=== PATIENT | male | born 1940 | race Asian ===

== ENCOUNTER 2018-03-13 20:14 | Emergency (ER) | payer MEDICARE, OTHER ==
[~2018-03-13] VITALS: Ht 172.7 cm; Wt 74.0 kg
[~2018-03-13 20:14] MED LIST: ALLO100T PO; AMLO-512 PO; CLON0.1T PO; COLC0.6T67 PO; DOCU-119 PO; FOLI1TAB15 PO; FURO-151 PO; INSU100V12 SQ; LOSA25TA21 PO; SIMV40TA5 PO; [UNRECOGNIZED DRUG - CODE] SQ
[2018-03-13] MEDS ORDERED: SEVEC800 PO (20:29)
[2018-03-13] MEDS ORDERED: MORPHINE SULFATE 4 MG/ML SYRINGE IVP ONE (21:30)
[2018-03-13] MEDS ORDERED: ONDANSETRON HCL 4 MG/2 ML VIAL IVP ONE (21:30)
[2018-03-13 21:45] LABS: BASOPHILS % (AUTO) 0.4 % (0.0-2.0); EOSINOPHILS % (AUTO) 2.2 % (1.0-6.0); HEMATOCRIT 31.7 % (41-53); HEMOGLOBIN 10.3 g/dL (13.5-17.5); LYMPHOCYTES # (AUTO) 0.6 K/uL (1.0-4.8); LYMPHOCYTES % (AUTO) 8.8 % (22.0-44.0); MEAN CORPUSCULAR HEMOGLOBIN 31.6 pg (26.0-34.0); MEAN CORPUSCULAR HGB CONC 32.4 G/dL (31.0-37.0); MEAN CORPUSCULAR VOLUME 98 fL (80-100); MONOCYTES # (AUTO) 0.5 K/uL (0.1-1.0); MONOCYTES % (AUTO) 8.1 % (2.0-9.0); NEUTROPHILS # (AUTO) 5.4 K/uL (1.8-7.7); NEUTROPHILS % (AUTO) 80.5 % (40.0-70.0); PLATELET COUNT (AUTO) 105 K/uL (150-450); RED BLOOD CELL COUNT(AUTO) 3.25 MIL/uL (4.50-5.90); RED CELL DISTRIBUTION WIDTH 17.8 % (11.5-14.5)
[2018-03-13 21:54] LABS: ANION GAP 9 mmol/L (8-16); CALCIUM, TOTAL 8.4 mg/dL (8.8-10.5); CARBON DIOXIDE 34 mmol/L (22-29); CHLORIDE 98 mmol/L (98-107); CREATININE 6.26 mg/dL (0.60-1.30); GLOMERULAR FILTR. RATE CALC 9 mL/min (>60); GLUCOSE,RANDOM 129 mg/dL (70-110); SODIUM SERUM 141 mmol/L (136-145); UREA NITROGEN, BLOOD 52 mg/dL (7-18)
[2018-03-13 21:57] LABS: PROTHROMBIN TIME 10.5 SEC (9.4-11.6)
[2018-03-13 22:19] LABS: ALANINE AMINOTRANSFERASE 30 U/L (12-78); ALBUMIN 3.3 g/dL (3.4-5.0); ALKALINE PHOSPHATASE 69 U/L (46-116); ASPARTATE AMINOTRANSFERASE 33 U/L (15-37); BILIRUBIN,TOTAL 0.7 mg/dL (0.1-1.0); CREATINE KINASE MB 0.5 ng/mL (0-5); CREATINE KINASE, TOTAL 95 U/L (39-308); TOTAL PROTEIN, SERUM 7.2 g/dL (6.4-8.2)
[2018-03-14] MEDS ORDERED: ONDANSETRON HCL 4 MG/2 ML VIAL IVP ONE (00:15)
[2018-03-14] MEDS ORDERED: HYDROmorphone 2 MG/ML SYRINGE IVP ONE (00:15)
[2018-03-14] MEDS ORDERED: ENOXAPARIN SODIUM 80 MG/0.8 ML PF SYRINGE SQ ONE (00:45)
[2018-03-14 02:00] VITALS: BP 122/58
== END 2018-03-14 03:29 | disposition short-term general hospital (02) ==
LOC: EMS 20:16
DX: S72.002A Fracture of unspecified part of neck of left femur, initial encounter for closed fracture (principal); S42.292A Other displaced fracture of upper end of left humerus, initial encounter for closed fracture; E11.22 Type 2 diabetes mellitus with diabetic chronic kidney disease; I12.0 Hypertensive chronic kidney disease with stage 5 chronic kidney disease or end stage renal disease; N18.6 End stage renal disease; E78.00 Pure hypercholesterolemia, unspecified; Z99.2 Dependence on renal dialysis; Z79.4 Long term (current) use of insulin; W18.39XA Other fall on same level, initial encounter; Y93.89 Activity, other specified; Y92.89 Other specified places as the place of occurrence of the external cause; Y99.8 Other external cause status
CPT/HCPCS: 70450; 71045; 73030; 73503; 80053; 82550; 82553; 84484; 85025; 85610; 85730; 93005; 96372; 96374; 96375; 96376; 99291; J1170; J1650; J2270; J2405 ×2

== ENCOUNTER 2018-11-28 11:24 | Inpatient (IN) | payer MEDICARE, OTHER ==
[~2018-11-28] VITALS: Ht 167.6 cm; Wt 70.1 kg
[~2018-11-28 11:24] MED LIST changes: +BUDE10.2 IH; +FURO40 PO; +GUAIFDM PO; +LEVO25TA9 PO; -LOSA25TA21 PO; +LOSA25TA44 PO; +SEVEC800 PO; +SIMV-261 PO; -SIMV40TA5 PO; +TAMS0.4C32 PO; -[UNRECOGNIZED DRUG - CODE] SQ
[2018-11-28 11:44] LABS: GLUCOSE,POINT OF CARE 121 MG/DL (70-110)
[2018-11-28 12:18] LABS: CALCIUM, TOTAL 8.3 mg/dL (8.8-10.5); CREATININE 7.94 mg/dL (0.60-1.30)
[2018-11-28 12:20] LABS: BASOPHILS % (AUTO) 0.2 % (0.0-2.0); EOSINOPHILS % (AUTO) 1.9 % (1.0-6.0); HEMATOCRIT 35.7 % (41-53); HEMOGLOBIN 11.5 g/dL (13.5-17.5); LYMPHOCYTES # (AUTO) 0.5 K/uL (1.0-4.8); LYMPHOCYTES % (AUTO) 11.5 % (22.0-44.0); MEAN CORPUSCULAR HEMOGLOBIN 30.7 pg (26.0-34.0); MEAN CORPUSCULAR HGB CONC 32.1 G/dL (31.0-37.0); MEAN CORPUSCULAR VOLUME 96 fL (80-100); MONOCYTES # (AUTO) 0.3 K/uL (0.1-1.0); NEUTROPHILS # (AUTO) 3.1 K/uL (1.8-7.7); NEUTROPHILS % (AUTO) 78.4 % (40.0-70.0); PLATELET COUNT (AUTO) 101 K/uL (150-450); RED BLOOD CELL COUNT(AUTO) 3.74 MIL/uL (4.50-5.90); RED CELL DISTRIBUTION WIDTH 16.4 % (11.5-14.5)
[2018-11-28 12:30] LABS: PROTHROMBIN TIME 10.2 SEC (9.4-11.6)
[2018-11-28 12:42] LABS: ALBUMIN 3.5 g/dL (3.4-5.0); BILIRUBIN,TOTAL 0.9 mg/dL (0.1-1.0); TOTAL PROTEIN, SERUM 7.6 g/dL (6.4-8.2)
[2018-11-28] MEDS ORDERED: MethylPREDNISolone SOD SUCC 125 MG/2 ML VIAL IVP ONE (13:00)
[2018-11-28] MEDS ORDERED: ACETAMINOPHEN 325 MG TABLET PO PRN ×2 (13:00→18:00)
[2018-11-28] MEDS ORDERED: IPRATROPIUM BROMIDE 0.5 MG/2.5 ML NEB SOLUTION NEB ONE (13:00)
[2018-11-28] MEDS ORDERED: ALBUTEROL SULFATE 2.5 MG/0.5 ML NEB SOLUTION NEB ONE (13:00)
[2018-11-28] MEDS ORDERED: 0.9% SODIUM CHLORIDE 10 ML SYRINGE IVP PRN ×3 (13:00→18:00)
[2018-11-28] MEDS ORDERED: CEFEPIME HCL 2 GM in DEXTROSE 5%-WATER 50 ML IV ONE (13:15)
[2018-11-28] MEDS ORDERED: SODIUM CHLORIDE 0.9% 100 ML ONE (13:52)
[2018-11-28] MEDS ORDERED: IOVERSOL 350 MG/ML 100 ML VIAL ONE (13:52)
[2018-11-28] MEDS ORDERED: AmLODIPine BESYLATE 10 MG TABLET PO SCH (15:45)
[2018-11-28 15:59] VITALS: BP 165/77
[2018-11-28] MEDS: GuaiFENesin/D-METHORPHAN [SUGAR-FREE] 200-20MG/10 ML SYRUP UDCUP PO PRN (16:35)
[2018-11-28] MEDS: COLCHICINE 0.6 MG TABLET PO SCH ×2 (16:35→20:53)
[2018-11-28] MEDS: FOLIC ACID 1 MG TABLET PO SCH (16:35)
[2018-11-28] MEDS: ALLOPURINOL 100 MG TABLET PO SCH (16:35)
[2018-11-28] MEDS: DOCUSATE SODIUM 100 MG CAPSULE PO SCH (16:36)
[2018-11-28] MEDS: SEVELAMER CARBONATE 800 MG TABLET PO SCH (17:19)
[2018-11-28] MEDS ORDERED: HYDROCODONE/ACETAMINOPHEN 5-325 MG TABLET PO PRN (18:00)
[2018-11-28] MEDS ORDERED: ALBUTEROL SULFATE 2.5 MG/0.5 ML NEB SOLUTION NEB PRN (18:00)
[2018-11-28] MEDS ORDERED: ONDANSETRON HCL 4 MG/2 ML VIAL IVP PRN (18:00)
[2018-11-28] MEDS ORDERED: IPRATROPIUM BROMIDE 0.5 MG/2.5 ML NEB SOLUTION NEB PRN (18:00)
[2018-11-28] MEDS: PANTOPRAZOLE SODIUM 40 MG DR TABLET PO SCH (18:09)
[2018-11-28] MEDS ORDERED: DEXTROSE 50%-WATER 25 GM/50 ML SYRINGE IVP PRN (18:15)
[2018-11-28] MEDS: INSULIN LISPRO 100 UNITS/ML SQ PRN ×2 (18:22→21:02)
[2018-11-28 20:25] LABS: PROTHROMBIN TIME 10.4 SEC (9.4-11.6)
[2018-11-28 20:36] VITALS: BP 135/60
[2018-11-28] MEDS: BUDESONIDE/FORMOTEROL FUMARATE 160-4.5 MCG/PUFF 6.9 GM INHALER IH SCH (20:52)
[2018-11-28] MEDS: DOCUSATE SODIUM 250 MG CAPSULE PO SCH (20:52)
[2018-11-28] MEDS: ATORVASTATIN CALCIUM 20 MG TABLET PO SCH (20:52)
[2018-11-28] MEDS: SIMVASTATIN 40 MG TABLET PO SCH (20:53)
[2018-11-28] MEDS: TAMSULOSIN HCL 0.4 MG CAPSULE PO SCH (20:53)
[2018-11-28] MEDS ORDERED: CloNIDine HCL 0.1 MG TABLET PO SCH (21:00)
[2018-11-28] MEDS ORDERED: FUROSEMIDE 40 MG TABLET PO SCH (21:00)
[2018-11-28] MEDS ORDERED: BUDESONIDE 0.5 MG/2 ML NEB SOLUTION NEB SCH (21:00)
[2018-11-28] MEDS: BUDESONIDE 0.5 MG/2 ML NEB SOLUTION NEB SCH (21:00)
[2018-11-28 21:13] LABS: ABG A-A DIFF O2 87.7 mmHg (10-20.0); ABG BASE EXCESS -6.3 mmol/L (-2.0-3.0); ABG CARBOXYHEMOGLOBIN 1.6 % (0.0-1.5); ABG METHEMOGLOBIN 0.3 % (0.0-1.5); ABG OXYGEN CONTENT 14.8 mL/dL (15.0-23.0); ABG OXYGEN SATURATION 94.4 % (95.0-98.0); ABG OXYHEMOGLOBIN 92.6 % (94.0-100.0); ABG PCO2 31 mmHg (35-45); ABG PH 7.399 (7.35-7.450); ABG TOTAL HEMOGLOBIN 11.3 G/dL (12.0-18.0); PO2, ARTERIAL BG 76.1 mmHg (75.0-83.0); SOURCE, BLOOD GAS ARTERIAL; TEMPERATURE, FAHRENHEIT, BG 97.6 FAHREN (96.0-98.6)
[2018-11-28 21:14] LABS: O2 DEVICE,BLOOD GAS CANNULA (ROOM AIR); SITE, BLOOD GAS RT RADIAL
[2018-11-28] MEDS ORDERED: SODIUM CHLORIDE 0.9% 2,000 ML IV ONE (21:55)
[2018-11-28] MEDS: INSULIN DETEMIR 100 UNITS/ML SQ SCH (21:55)
[2018-11-29] VITALS (8 sets, daily range): BP systolic 112–144; BP diastolic 52–86
[2018-11-29] MEDS: GuaiFENesin/D-METHORPHAN [SUGAR-FREE] 200-20MG/10 ML SYRUP UDCUP PO PRN ×3 (00:36→17:40)
[2018-11-29] MEDS ORDERED: MANNITOL 25%-12.5 GM/50 ML VIAL IVP PRN (00:45)
[2018-11-29] MEDS: LEVOTHYROXINE SODIUM 25 MCG TABLET PO SCH (06:17)
[2018-11-29] MEDS: INSULIN LISPRO 100 UNITS/ML SQ PRN ×2 (06:17→17:57)
[2018-11-29] MEDS: PANTOPRAZOLE SODIUM 40 MG DR TABLET PO SCH (06:35)
[2018-11-29 06:56] LABS: BASOPHILS % (AUTO) 0.2 % (0.0-2.0); EOSINOPHILS % (AUTO) 0 % (1.0-6.0); HEMATOCRIT 35.4 % (41-53); HEMOGLOBIN 11.3 g/dL (13.5-17.5); LYMPHOCYTES # (AUTO) 0.4 K/uL (1.0-4.8); LYMPHOCYTES % (AUTO) 10.1 % (22.0-44.0); MEAN CORPUSCULAR HEMOGLOBIN 30.6 pg (26.0-34.0); MEAN CORPUSCULAR VOLUME 96 fL (80-100); MONOCYTES # (AUTO) 0.3 K/uL (0.1-1.0); MONOCYTES % (AUTO) 6.6 % (2.0-9.0); NEUTROPHILS # (AUTO) 3.5 K/uL (1.8-7.7); NEUTROPHILS % (AUTO) 83.1 % (40.0-70.0); PLATELET COUNT (AUTO) 97 K/uL (150-450); RED CELL DISTRIBUTION WIDTH 16.8 % (11.5-14.5)
[2018-11-29 07:26] LABS: CHOL/HDL RATIO 1.3 (4.2-7.3); THYROID STIMULATING HORMONE 1.71 uIU/mL (0.36-3.74)
[2018-11-29 07:47] LABS: HEMOGLOBIN A1C 6.3 % (4.5-6.2)
[2018-11-29] MEDS: SEVELAMER CARBONATE 800 MG TABLET PO SCH ×3 (07:59→17:55)
[2018-11-29] MEDS: BUDESONIDE/FORMOTEROL FUMARATE 160-4.5 MCG/PUFF 6.9 GM INHALER IH SCH ×2 (07:59→20:22)
[2018-11-29] MEDS: DOCUSATE SODIUM 100 MG CAPSULE PO SCH (08:00)
[2018-11-29] MEDS: DOCUSATE SODIUM 250 MG CAPSULE PO SCH ×3 (08:03→20:21)
[2018-11-29] MEDS: FOLIC ACID 1 MG TABLET PO SCH (08:03)
[2018-11-29] MEDS: COLCHICINE 0.6 MG TABLET PO SCH ×3 (08:03→20:22)
[2018-11-29] MEDS: ALLOPURINOL 100 MG TABLET PO SCH (08:04)
[2018-11-29] MEDS: METOPROLOL TARTRATE 50 MG TABLET PO SCH ×2 (09:00→20:22)
[2018-11-29] MEDS ORDERED: LOSARTAN POTASSIUM 25 MG TABLET PO SCH (09:00)
[2018-11-29] MEDS: BUDESONIDE 0.5 MG/2 ML NEB SOLUTION NEB SCH ×2 (09:35→20:19)
[2018-11-29 19:43] LABS: PROTHROMBIN TIME 10.6 SEC (9.4-11.6)
[2018-11-29] MEDS: ATORVASTATIN CALCIUM 20 MG TABLET PO SCH (20:21)
[2018-11-29] MEDS: TAMSULOSIN HCL 0.4 MG CAPSULE PO SCH (20:21)
[2018-11-29] MEDS: SIMVASTATIN 40 MG TABLET PO SCH (20:21)
[2018-11-29] MEDS: INSULIN DETEMIR 100 UNITS/ML SQ SCH (20:30)
[2018-11-30 04:41] VITALS: BP 135/58
[2018-11-30] MEDS: LEVOTHYROXINE SODIUM 25 MCG TABLET PO SCH (05:57)
[2018-11-30] MEDS: PANTOPRAZOLE SODIUM 40 MG DR TABLET PO SCH (05:57)
[2018-11-30] MEDS ORDERED: SODIUM CHLORIDE 0.9% 1,000 ML IV ONE (06:20)
[2018-11-30 06:38] LABS: BILIRUBIN,TOTAL 0.6 mg/dL (0.1-1.0); CALCIUM, TOTAL 8.1 mg/dL (8.8-10.5); CREATININE 5.28 mg/dL (0.60-1.30); MAGNESIUM 1.6 mg/dL (1.80-2.40); POTASSIUM 4.4 mmol/L (3.5-5.1); TOTAL PROTEIN, SERUM 6.4 g/dL (6.4-8.2)
[2018-11-30 07:52] VITALS: BP 131/79
[2018-11-30] MEDS: DOCUSATE SODIUM 100 MG CAPSULE PO SCH (07:56)
[2018-11-30] MEDS: SEVELAMER CARBONATE 800 MG TABLET PO SCH ×3 (07:56→18:00)
[2018-11-30] MEDS: BUDESONIDE/FORMOTEROL FUMARATE 160-4.5 MCG/PUFF 6.9 GM INHALER IH SCH ×2 (07:56→20:07)
[2018-11-30] MEDS: FOLIC ACID 1 MG TABLET PO SCH (07:57)
[2018-11-30] MEDS: DOCUSATE SODIUM 250 MG CAPSULE PO SCH ×3 (07:57→20:06)
[2018-11-30] MEDS: ALLOPURINOL 100 MG TABLET PO SCH (07:57)
[2018-11-30] MEDS: GuaiFENesin/D-METHORPHAN [SUGAR-FREE] 200-20MG/10 ML SYRUP UDCUP PO PRN ×2 (07:57→17:12)
[2018-11-30] MEDS: COLCHICINE 0.6 MG TABLET PO SCH ×3 (07:57→20:06)
[2018-11-30] MEDS: METOPROLOL TARTRATE 50 MG TABLET PO SCH ×2 (07:57→21:20)
[2018-11-30] MEDS: BUDESONIDE 0.5 MG/2 ML NEB SOLUTION NEB SCH ×2 (08:18→20:13)
[2018-11-30] MEDS ORDERED: MAGNESIUM SULFATE 2 GM/WATER 50 ML IV ONE (11:00)
[2018-11-30 11:11] VITALS: BP 92/51
[2018-11-30] MEDS ORDERED: SODIUM CHLORIDE 0.9% 100 ML ONE (11:31)
[2018-11-30] MEDS: INSULIN LISPRO 100 UNITS/ML SQ PRN (12:09)
[2018-11-30] MEDS: AMIODARONE HCL 200 MG TABLET PO SCH (12:52)
[2018-11-30 13:59] LABS: GLUCOMETER DEV NAME(LOC) 5S.1; GLUCOSE,POINT OF CARE 223 MG/DL (70-110)
[2018-11-30 14:00] LABS: GLUCOMETER DEV NAME(LOC) 5S.1; GLUCOSE,POINT OF CARE 56 MG/DL (70-110)
[2018-11-30 14:00] LABS: GLUCOMETER DEV NAME(LOC) 5S.1; GLUCOSE,POINT OF CARE 137 MG/DL (70-110)
[2018-11-30 14:01] LABS: GLUCOMETER DEV NAME(LOC) 5S.2; GLUCOSE,POINT OF CARE 112 MG/DL (70-110)
[2018-11-30 14:05] LABS: GLUCOMETER DEV NAME(LOC) 5S.1; GLUCOSE,POINT OF CARE 262 MG/DL (70-110)
[2018-11-30 14:06] LABS: GLUCOMETER DEV NAME(LOC) 5S.2; GLUCOSE,POINT OF CARE 99 MG/DL (70-110)
[2018-11-30 14:06] LABS: GLUCOMETER DEV NAME(LOC) 5S.1; GLUCOSE,POINT OF CARE 214 MG/DL (70-110)
[2018-11-30 14:06] LABS: GLUCOMETER DEV NAME(LOC) 5S.1; GLUCOSE,POINT OF CARE 275 MG/DL (70-110)
[2018-11-30 15:45] VITALS: BP 100/52
[2018-11-30] MEDS: SIMVASTATIN 40 MG TABLET PO SCH (20:05)
[2018-11-30] MEDS: ATORVASTATIN CALCIUM 20 MG TABLET PO SCH (20:05)
[2018-11-30] MEDS: TAMSULOSIN HCL 0.4 MG CAPSULE PO SCH (20:05)
[2018-11-30 21:00] VITALS: BP 130/65
[2018-11-30] MEDS: INSULIN DETEMIR 100 UNITS/ML SQ SCH (21:21)
[2018-12-01] VITALS (8 sets, daily range): BP systolic 94–142; BP diastolic 45–76
[2018-12-01] MEDS: PANTOPRAZOLE SODIUM 40 MG DR TABLET PO SCH (06:34)
[2018-12-01] MEDS: LEVOTHYROXINE SODIUM 25 MCG TABLET PO SCH (06:34)
[2018-12-01 07:15] LABS: ALBUMIN 3.1 g/dL (3.4-5.0); BILIRUBIN,TOTAL 0.6 mg/dL (0.1-1.0); CALCIUM, TOTAL 8.2 mg/dL (8.8-10.5); CREATININE 5.13 mg/dL (0.60-1.30); POTASSIUM 4.1 mmol/L (3.5-5.1); TOTAL PROTEIN, SERUM 6.9 g/dL (6.4-8.2)
[2018-12-01] MEDS: DOCUSATE SODIUM 100 MG CAPSULE PO SCH (08:27)
[2018-12-01] MEDS: DOCUSATE SODIUM 250 MG CAPSULE PO SCH ×3 (08:27→20:28)
[2018-12-01] MEDS: SEVELAMER CARBONATE 800 MG TABLET PO SCH ×3 (08:31→17:51)
[2018-12-01 08:50] LABS: GLUCOMETER DEV NAME(LOC) 5S.2; GLUCOSE,POINT OF CARE 130 MG/DL (70-110)
[2018-12-01] MEDS: GuaiFENesin/D-METHORPHAN [SUGAR-FREE] 200-20MG/10 ML SYRUP UDCUP PO PRN ×2 (08:52→20:29)
[2018-12-01 08:56] LABS: GLUCOMETER DEV NAME(LOC) 5S.2; GLUCOSE,POINT OF CARE 159 MG/DL (70-110)
[2018-12-01 08:56] LABS: GLUCOMETER DEV NAME(LOC) 5S.1; GLUCOSE,POINT OF CARE 95 MG/DL (70-110)
[2018-12-01] MEDS: BUDESONIDE 0.5 MG/2 ML NEB SOLUTION NEB SCH ×2 (09:00→20:50)
[2018-12-01] MEDS: COLCHICINE 0.6 MG TABLET PO SCH ×3 (09:00→20:25)
[2018-12-01] MEDS: AMIODARONE HCL 200 MG TABLET PO SCH ×2 (09:00→20:26)
[2018-12-01] MEDS: BUDESONIDE/FORMOTEROL FUMARATE 160-4.5 MCG/PUFF 6.9 GM INHALER IH SCH ×2 (12:48→20:28)
[2018-12-01] MEDS: ALLOPURINOL 100 MG TABLET PO SCH (12:48)
[2018-12-01] MEDS: FOLIC ACID 1 MG TABLET PO SCH (12:48)
[2018-12-01] MEDS: METOPROLOL TARTRATE 50 MG TABLET PO SCH ×2 (13:01→20:25)
[2018-12-01 17:30] LABS: GLUCOMETER DEV NAME(LOC) 5S.2; GLUCOSE,POINT OF CARE 95 MG/DL (70-110)
[2018-12-01 17:30] LABS: GLUCOMETER DEV NAME(LOC) 5S.2; GLUCOSE,POINT OF CARE 156 MG/DL (70-110)
[2018-12-01 17:30] LABS: GLUCOMETER DEV NAME(LOC) 5S.2; GLUCOSE,POINT OF CARE 140 MG/DL (70-110)
[2018-12-01] MEDS: INSULIN LISPRO 100 UNITS/ML SQ PRN (17:51)
[2018-12-01] MEDS: ATORVASTATIN CALCIUM 20 MG TABLET PO SCH (20:24)
[2018-12-01] MEDS: SIMVASTATIN 40 MG TABLET PO SCH (20:24)
[2018-12-01] MEDS: TAMSULOSIN HCL 0.4 MG CAPSULE PO SCH (20:27)
[2018-12-01] MEDS: INSULIN DETEMIR 100 UNITS/ML SQ SCH (20:39)
[2018-12-02 05:38] VITALS: BP 133/56
[2018-12-02 06:11] LABS: BASOPHILS % (AUTO) 0.3 % (0.0-2.0); EOSINOPHILS % (AUTO) 4.8 % (1.0-6.0); HEMATOCRIT 33.2 % (41-53); HEMOGLOBIN 10.7 g/dL (13.5-17.5); LYMPHOCYTES % (AUTO) 19.1 % (22.0-44.0); MEAN CORPUSCULAR HEMOGLOBIN 30.9 pg (26.0-34.0); MEAN CORPUSCULAR HGB CONC 32.3 G/dL (31.0-37.0); MEAN CORPUSCULAR VOLUME 96 fL (80-100); MONOCYTES # (AUTO) 0.6 K/uL (0.1-1.0); MONOCYTES % (AUTO) 10.9 % (2.0-9.0); NEUTROPHILS # (AUTO) 3.4 K/uL (1.8-7.7); NEUTROPHILS % (AUTO) 64.9 % (40.0-70.0); RED BLOOD CELL COUNT(AUTO) 3.48 MIL/uL (4.50-5.90); RED CELL DISTRIBUTION WIDTH 16.1 % (11.5-14.5)
[2018-12-02 06:14] LABS: GLUCOMETER DEV NAME(LOC) 5S.2; GLUCOSE,POINT OF CARE 91 MG/DL (70-110)
[2018-12-02 06:22] LABS: BILIRUBIN,TOTAL 0.5 mg/dL (0.1-1.0); CALCIUM, TOTAL 8.2 mg/dL (8.8-10.5); CREATININE 4.52 mg/dL (0.60-1.30); POTASSIUM 3.9 mmol/L (3.5-5.1); TOTAL PROTEIN, SERUM 6.5 g/dL (6.4-8.2)
[2018-12-02] MEDS: LEVOTHYROXINE SODIUM 25 MCG TABLET PO SCH (06:22)
[2018-12-02] MEDS: PANTOPRAZOLE SODIUM 40 MG DR TABLET PO SCH ×2 (06:23→11:04)
[2018-12-02 07:08] LABS: PLATELET COUNT (AUTO) 93 K/uL (150-450)
[2018-12-02 07:28] VITALS: BP 138/83
[2018-12-02] MEDS: SEVELAMER CARBONATE 800 MG TABLET PO SCH ×3 (08:00→18:05)
[2018-12-02] MEDS: DOCUSATE SODIUM 100 MG CAPSULE PO SCH (09:00)
[2018-12-02] MEDS: BUDESONIDE 0.5 MG/2 ML NEB SOLUTION NEB SCH ×2 (09:00→20:44)
[2018-12-02] MEDS: METOPROLOL TARTRATE 50 MG TABLET PO SCH ×2 (09:00→20:15)
[2018-12-02 11:01] VITALS: BP 110/47
[2018-12-02] MEDS: AMIODARONE HCL 200 MG TABLET PO SCH ×2 (11:04→20:15)
[2018-12-02] MEDS: DOCUSATE SODIUM 250 MG CAPSULE PO SCH ×3 (11:04→20:15)
[2018-12-02] MEDS: FOLIC ACID 1 MG TABLET PO SCH (11:04)
[2018-12-02] MEDS: ALLOPURINOL 100 MG TABLET PO SCH (11:04)
[2018-12-02] MEDS: COLCHICINE 0.6 MG TABLET PO SCH ×3 (11:04→20:07)
[2018-12-02] MEDS: BUDESONIDE/FORMOTEROL FUMARATE 160-4.5 MCG/PUFF 6.9 GM INHALER IH SCH ×2 (11:05→20:16)
[2018-12-02] MEDS: GuaiFENesin/D-METHORPHAN [SUGAR-FREE] 200-20MG/10 ML SYRUP UDCUP PO PRN (14:02)
[2018-12-02] MEDS: INSULIN LISPRO 100 UNITS/ML SQ PRN (14:04)
[2018-12-02 15:24] VITALS: BP 108/51
[2018-12-02] MEDS ORDERED: ALBUMIN HUMAN 25%-12.5GM/50ML IV BOTTLE ONE (15:30)
[2018-12-02 19:40] VITALS: BP 109/51
[2018-12-02] MEDS: TAMSULOSIN HCL 0.4 MG CAPSULE PO SCH (20:14)
[2018-12-02] MEDS: ATORVASTATIN CALCIUM 20 MG TABLET PO SCH (20:14)
[2018-12-02] MEDS: SIMVASTATIN 40 MG TABLET PO SCH (20:16)
[2018-12-02] MEDS: INSULIN DETEMIR 100 UNITS/ML SQ SCH (21:01)
[2018-12-02] MEDS: ZOLPIDEM TARTRATE 5 MG TABLET PO PRN (21:02)
[2018-12-03] VITALS (8 sets, daily range): BP systolic 72–168; BP diastolic 44–126
[2018-12-03] MEDS: LEVOTHYROXINE SODIUM 25 MCG TABLET PO SCH (05:42)
[2018-12-03 06:29] LABS: ALBUMIN 3.3 g/dL (3.4-5.0); BILIRUBIN,TOTAL 0.6 mg/dL (0.1-1.0); CALCIUM, TOTAL 8.3 mg/dL (8.8-10.5); CREATININE 4.32 mg/dL (0.60-1.30); POTASSIUM 3.8 mmol/L (3.5-5.1); TOTAL PROTEIN, SERUM 6.9 g/dL (6.4-8.2)
[2018-12-03] MEDS: SEVELAMER CARBONATE 800 MG TABLET PO SCH ×3 (08:00→18:10)
[2018-12-03] MEDS: DOCUSATE SODIUM 100 MG CAPSULE PO SCH ×2 (09:00→20:22)
[2018-12-03] MEDS: BUDESONIDE 0.5 MG/2 ML NEB SOLUTION NEB SCH ×2 (09:24→20:11)
[2018-12-03] MEDS: COLCHICINE 0.6 MG TABLET PO SCH ×3 (10:33→20:28)
[2018-12-03] MEDS: AMIODARONE HCL 200 MG TABLET PO SCH ×2 (10:33→20:25)
[2018-12-03] MEDS: METOPROLOL TARTRATE 50 MG TABLET PO SCH ×2 (10:33→20:28)
[2018-12-03] MEDS: BUDESONIDE/FORMOTEROL FUMARATE 160-4.5 MCG/PUFF 6.9 GM INHALER IH SCH ×2 (10:34→20:28)
[2018-12-03] MEDS: FOLIC ACID 1 MG TABLET PO SCH (10:34)
[2018-12-03] MEDS: ALLOPURINOL 100 MG TABLET PO SCH (10:34)
[2018-12-03] MEDS: DOCUSATE SODIUM 250 MG CAPSULE PO SCH (10:34)
[2018-12-03 10:48] LABS: GLUCOMETER DEV NAME(LOC) 5S.2; GLUCOSE,POINT OF CARE 132 MG/DL (70-110)
[2018-12-03 10:50] LABS: GLUCOMETER DEV NAME(LOC) 5S.2; GLUCOSE,POINT OF CARE 134 MG/DL (70-110)
[2018-12-03 10:50] LABS: GLUCOMETER DEV NAME(LOC) 5S.2; GLUCOSE,POINT OF CARE 190 MG/DL (70-110)
[2018-12-03 10:50] LABS: GLUCOMETER DEV NAME(LOC) 5S.1; GLUCOSE,POINT OF CARE 120 MG/DL (70-110)
[2018-12-03 10:51] LABS: GLUCOMETER DEV NAME(LOC) 5S.1; GLUCOSE,POINT OF CARE 120 MG/DL (70-110)
[2018-12-03 19:14] LABS: GLUCOMETER DEV NAME(LOC) 5S.1; GLUCOSE,POINT OF CARE 151 MG/DL (70-110)
[2018-12-03 19:14] LABS: GLUCOMETER DEV NAME(LOC) 5S.1; GLUCOSE,POINT OF CARE 126 MG/DL (70-110)
[2018-12-03] MEDS: ATORVASTATIN CALCIUM 20 MG TABLET PO SCH (20:28)
[2018-12-03] MEDS: TAMSULOSIN HCL 0.4 MG CAPSULE PO SCH (20:28)
[2018-12-03] MEDS: GuaiFENesin/D-METHORPHAN [SUGAR-FREE] 200-20MG/10 ML SYRUP UDCUP PO PRN (20:28)
[2018-12-03] MEDS: ZOLPIDEM TARTRATE 5 MG TABLET PO PRN (20:28)
[2018-12-03] MEDS: SIMVASTATIN 40 MG TABLET PO SCH (20:28)
[2018-12-03] MEDS: INSULIN LISPRO 100 UNITS/ML SQ PRN (20:31)
[2018-12-03] MEDS: INSULIN DETEMIR 100 UNITS/ML SQ SCH (20:31)
[2018-12-04] VITALS (8 sets, daily range): BP systolic 90–143; BP diastolic 42–69
[2018-12-04 05:19] LABS: GLUCOMETER DEV NAME(LOC) 5S.1; GLUCOSE,POINT OF CARE 174 MG/DL (70-110)
[2018-12-04] MEDS: PANTOPRAZOLE SODIUM 40 MG DR TABLET PO SCH (06:00)
[2018-12-04] MEDS: LEVOTHYROXINE SODIUM 25 MCG TABLET PO SCH (06:00)
[2018-12-04 06:38] LABS: CALCIUM, TOTAL 8.1 mg/dL (8.8-10.5); CREATININE 4.37 mg/dL (0.60-1.30)
[2018-12-04 07:51] LABS: ALBUMIN 3.3 g/dL (3.4-5.0); BILIRUBIN,TOTAL 0.5 mg/dL (0.1-1.0); TOTAL PROTEIN, SERUM 6.9 g/dL (6.4-8.2)
[2018-12-04] MEDS: BUDESONIDE 0.5 MG/2 ML NEB SOLUTION NEB SCH ×2 (08:01→20:17)
[2018-12-04] MEDS: SEVELAMER CARBONATE 800 MG TABLET PO SCH ×3 (08:16→17:59)
[2018-12-04] MEDS: AMIODARONE HCL 200 MG TABLET PO SCH ×2 (08:16→20:44)
[2018-12-04] MEDS: FOLIC ACID 1 MG TABLET PO SCH (08:16)
[2018-12-04] MEDS: METOPROLOL TARTRATE 50 MG TABLET PO SCH ×2 (08:16→20:44)
[2018-12-04] MEDS: BUDESONIDE/FORMOTEROL FUMARATE 160-4.5 MCG/PUFF 6.9 GM INHALER IH SCH ×2 (08:17→20:47)
[2018-12-04] MEDS: DOCUSATE SODIUM 100 MG CAPSULE PO SCH ×2 (08:17→20:42)
[2018-12-04] MEDS: COLCHICINE 0.6 MG TABLET PO SCH ×3 (08:18→20:45)
[2018-12-04] MEDS: ALLOPURINOL 100 MG TABLET PO SCH ×2 (08:55→08:57)
[2018-12-04 09:44] LABS: GLUCOMETER DEV NAME(LOC) 5S.2; GLUCOSE,POINT OF CARE 79 MG/DL (70-110)
[2018-12-04] MEDS: GuaiFENesin/D-METHORPHAN [SUGAR-FREE] 200-20MG/10 ML SYRUP UDCUP PO PRN (14:05)
[2018-12-04 15:43] LABS: MAGNESIUM 1.7 mg/dL (1.80-2.40)
[2018-12-04] MEDS ORDERED: MAGNESIUM SULFATE 2 GM/WATER 50 ML IV ONE (17:45)
[2018-12-04] MEDS ORDERED: SODIUM CHLORIDE 0.9% 100 ML ONE (18:21)
[2018-12-04] MEDS: ZOLPIDEM TARTRATE 5 MG TABLET PO PRN (20:45)
[2018-12-04] MEDS: TAMSULOSIN HCL 0.4 MG CAPSULE PO SCH (20:45)
[2018-12-04] MEDS: SIMVASTATIN 40 MG TABLET PO SCH (20:45)
[2018-12-04] MEDS: ATORVASTATIN CALCIUM 20 MG TABLET PO SCH (20:45)
[2018-12-04] MEDS: INSULIN DETEMIR 100 UNITS/ML SQ SCH (20:56)
[2018-12-05] MEDS: GuaiFENesin/D-METHORPHAN [SUGAR-FREE] 200-20MG/10 ML SYRUP UDCUP PO PRN ×3 (00:21→16:27)
[2018-12-05 01:14] LABS: GLUCOMETER DEV NAME(LOC) 5S.2; GLUCOSE,POINT OF CARE 136 MG/DL (70-110)
[2018-12-05 01:14] LABS: GLUCOMETER DEV NAME(LOC) 5S.2; GLUCOSE,POINT OF CARE 116 MG/DL (70-110)
[2018-12-05 01:14] LABS: GLUCOMETER DEV NAME(LOC) 5S.2; GLUCOSE,POINT OF CARE 89 MG/DL (70-110)
[2018-12-05 04:48] VITALS: BP 137/58
[2018-12-05] MEDS: PANTOPRAZOLE SODIUM 40 MG DR TABLET PO SCH (05:48)
[2018-12-05] MEDS: LEVOTHYROXINE SODIUM 25 MCG TABLET PO SCH (05:48)
[2018-12-05 07:21] VITALS: BP 104/58
[2018-12-05] MEDS: AMIODARONE HCL 200 MG TABLET PO SCH ×2 (08:10→23:08)
[2018-12-05] MEDS: FOLIC ACID 1 MG TABLET PO SCH (08:10)
[2018-12-05] MEDS: COLCHICINE 0.6 MG TABLET PO SCH ×3 (08:10→23:08)
[2018-12-05] MEDS: SEVELAMER CARBONATE 800 MG TABLET PO SCH ×3 (08:10→17:43)
[2018-12-05] MEDS: ALLOPURINOL 100 MG TABLET PO SCH (08:10)
[2018-12-05] MEDS: METOPROLOL TARTRATE 50 MG TABLET PO SCH ×2 (08:11→23:08)
[2018-12-05] MEDS: BUDESONIDE/FORMOTEROL FUMARATE 160-4.5 MCG/PUFF 6.9 GM INHALER IH SCH ×2 (08:17→23:09)
[2018-12-05] MEDS: DOCUSATE SODIUM 100 MG CAPSULE PO SCH ×2 (08:25→21:00)
[2018-12-05 08:58] LABS: ALBUMIN 3.5 g/dL (3.4-5.0); BILIRUBIN,TOTAL 0.6 mg/dL (0.1-1.0); CALCIUM, TOTAL 8.6 mg/dL (8.8-10.5); CREATININE 4.34 mg/dL (0.60-1.30); MAGNESIUM 1.9 mg/dL (1.80-2.40); POTASSIUM 3.9 mmol/L (3.5-5.1); TOTAL PROTEIN, SERUM 7.3 g/dL (6.4-8.2)
[2018-12-05] MEDS: BUDESONIDE 0.5 MG/2 ML NEB SOLUTION NEB SCH ×2 (09:06→21:00)
[2018-12-05 11:09] VITALS: BP 120/60
[2018-12-05] MEDS ORDERED: MANNITOL 25%-12.5 GM/50 ML VIAL IVP ONE (12:00)
[2018-12-05] MEDS: INSULIN LISPRO 100 UNITS/ML SQ PRN (12:16)
[2018-12-05 14:53] VITALS: BP 122/58
[2018-12-05] MEDS: MIDODRINE HCL 5 MG TABLET PO PRN ×2 (18:38→21:04)
[2018-12-05] MEDS ORDERED: SODIUM CHLORIDE 0.9% 1,000 ML IV ONE ×2 (18:43)
[2018-12-05] MEDS ORDERED: MANNITOL 25%-12.5 GM/50 ML VIAL IVP PRN (19:30)
[2018-12-05 19:47] VITALS: BP 133/64
[2018-12-05 19:49] LABS: GLUCOMETER DEV NAME(LOC) 5S.1; GLUCOSE,POINT OF CARE 145 MG/DL (70-110)
[2018-12-05 19:49] LABS: GLUCOMETER DEV NAME(LOC) 5S.1; GLUCOSE,POINT OF CARE 86 MG/DL (70-110)
[2018-12-05 19:49] LABS: GLUCOMETER DEV NAME(LOC) 5S.1; GLUCOSE,POINT OF CARE 166 MG/DL (70-110)
[2018-12-05] MEDS: INSULIN DETEMIR 100 UNITS/ML SQ SCH (21:00)
[2018-12-05] MEDS ORDERED: ALBUMIN HUMAN 25%-12.5GM/50ML IV BOTTLE IV PRN (21:15)
[2018-12-05] MEDS: ATORVASTATIN CALCIUM 20 MG TABLET PO SCH (23:08)
[2018-12-05] MEDS: TAMSULOSIN HCL 0.4 MG CAPSULE PO SCH (23:08)
[2018-12-05] MEDS: SIMVASTATIN 40 MG TABLET PO SCH (23:08)
[2018-12-05 23:38] VITALS: BP 93/49
[2018-12-06] MEDS: GuaiFENesin/D-METHORPHAN [SUGAR-FREE] 200-20MG/10 ML SYRUP UDCUP PO PRN ×3 (00:11→19:47)
[2018-12-06 00:14] LABS: GLUCOMETER DEV NAME(LOC) 5S.2; GLUCOSE,POINT OF CARE 121 MG/DL (70-110)
[2018-12-06 04:17] VITALS: BP 138/55
[2018-12-06] MEDS: LEVOTHYROXINE SODIUM 25 MCG TABLET PO SCH (05:52)
[2018-12-06] MEDS: PANTOPRAZOLE SODIUM 40 MG DR TABLET PO SCH (05:52)
[2018-12-06 06:03] LABS: CALCIUM, TOTAL 8.6 mg/dL (8.8-10.5); CREATININE 3.77 mg/dL (0.60-1.30)
[2018-12-06 07:59] VITALS: BP 131/53
[2018-12-06] MEDS: SEVELAMER CARBONATE 800 MG TABLET PO SCH ×3 (08:21→18:23)
[2018-12-06] MEDS: AMIODARONE HCL 200 MG TABLET PO SCH ×2 (08:21→21:37)
[2018-12-06] MEDS: ALLOPURINOL 100 MG TABLET PO SCH (08:21)
[2018-12-06] MEDS: COLCHICINE 0.6 MG TABLET PO SCH ×3 (08:22→21:37)
[2018-12-06] MEDS: BUDESONIDE/FORMOTEROL FUMARATE 160-4.5 MCG/PUFF 6.9 GM INHALER IH SCH ×2 (08:23→21:36)
[2018-12-06] MEDS: DOCUSATE SODIUM 100 MG CAPSULE PO SCH ×2 (08:23→21:00)
[2018-12-06] MEDS: FOLIC ACID 1 MG TABLET PO SCH (08:24)
[2018-12-06] MEDS: BUDESONIDE 0.5 MG/2 ML NEB SOLUTION NEB SCH ×2 (08:35→20:08)
[2018-12-06] MEDS: METOPROLOL TARTRATE 50 MG TABLET PO SCH ×2 (09:00→21:38)
[2018-12-06 10:51] VITALS: BP 86/44
[2018-12-06] MEDS: INSULIN LISPRO 100 UNITS/ML SQ PRN ×2 (11:25→17:40)
[2018-12-06] MEDS ORDERED: ALBUMIN HUMAN 25%-12.5GM/50ML IV BOTTLE IV ONE (12:00)
[2018-12-06] MEDS ORDERED: MANNITOL 25%-12.5 GM/50 ML VIAL IVP ONE (12:00)
[2018-12-06 15:38] VITALS: BP 114/60
[2018-12-06] MEDS: MIDODRINE HCL 5 MG TABLET PO PRN (17:24)
[2018-12-06 17:49] LABS: GLUCOMETER DEV NAME(LOC) 5S.2; GLUCOSE,POINT OF CARE 217 MG/DL (70-110)
[2018-12-06 17:49] LABS: GLUCOMETER DEV NAME(LOC) 5S.2; GLUCOSE,POINT OF CARE 105 MG/DL (70-110)
[2018-12-06 17:49] LABS: GLUCOMETER DEV NAME(LOC) 5S.1; GLUCOSE,POINT OF CARE 150 MG/DL (70-110)
[2018-12-06] MEDS: INSULIN DETEMIR 100 UNITS/ML SQ SCH (21:00)
[2018-12-06 21:37] VITALS: BP 115/60
[2018-12-06] MEDS: ATORVASTATIN CALCIUM 20 MG TABLET PO SCH (21:37)
[2018-12-06] MEDS: SIMVASTATIN 40 MG TABLET PO SCH (21:37)
[2018-12-06] MEDS: TAMSULOSIN HCL 0.4 MG CAPSULE PO SCH (21:37)
[2018-12-06] MEDS: ZOLPIDEM TARTRATE 5 MG TABLET PO PRN (22:08)
[2018-12-06 22:49] LABS: GLUCOMETER DEV NAME(LOC) 5S.2; GLUCOSE,POINT OF CARE 112 MG/DL (70-110)
[2018-12-07] VITALS (8 sets, daily range): BP systolic 96–130; BP diastolic 46–61
[2018-12-07] MEDS: PANTOPRAZOLE SODIUM 40 MG DR TABLET PO SCH (06:01)
[2018-12-07] MEDS: LEVOTHYROXINE SODIUM 25 MCG TABLET PO SCH (06:01)
[2018-12-07 06:15] LABS: GLUCOMETER DEV NAME(LOC) 5S.1; GLUCOSE,POINT OF CARE 129 MG/DL (70-110)
[2018-12-07] MEDS: ALLOPURINOL 100 MG TABLET PO SCH (08:44)
[2018-12-07] MEDS: METOPROLOL TARTRATE 50 MG TABLET PO SCH ×2 (08:44→21:00)
[2018-12-07] MEDS: FOLIC ACID 1 MG TABLET PO SCH (08:44)
[2018-12-07] MEDS: COLCHICINE 0.6 MG TABLET PO SCH ×3 (08:44→21:22)
[2018-12-07] MEDS: AMIODARONE HCL 200 MG TABLET PO SCH ×2 (08:44→21:00)
[2018-12-07] MEDS: SEVELAMER CARBONATE 800 MG TABLET PO SCH ×3 (08:44→18:09)
[2018-12-07] MEDS: DOCUSATE SODIUM 100 MG CAPSULE PO SCH ×2 (08:45→21:00)
[2018-12-07] MEDS: BUDESONIDE 0.5 MG/2 ML NEB SOLUTION NEB SCH ×2 (08:49→20:41)
[2018-12-07] MEDS ORDERED: SODIUM CHLORIDE 0.9% 2,000 ML IV ONE (10:49)
[2018-12-07] MEDS: BUDESONIDE/FORMOTEROL FUMARATE 160-4.5 MCG/PUFF 6.9 GM INHALER IH SCH ×2 (10:53→21:31)
[2018-12-07] MEDS: MIDODRINE HCL 5 MG TABLET PO PRN (10:53)
[2018-12-07] MEDS: GuaiFENesin/D-METHORPHAN [SUGAR-FREE] 200-20MG/10 ML SYRUP UDCUP PO PRN ×2 (10:53→21:22)
[2018-12-07 17:04] LABS: GLUCOMETER DEV NAME(LOC) 5S.2; GLUCOSE,POINT OF CARE 161 MG/DL (70-110)
[2018-12-07] MEDS: INSULIN DETEMIR 100 UNITS/ML SQ SCH (21:00)
[2018-12-07] MEDS: SIMVASTATIN 40 MG TABLET PO SCH (21:21)
[2018-12-07] MEDS: ATORVASTATIN CALCIUM 20 MG TABLET PO SCH (21:21)
[2018-12-07] MEDS: TAMSULOSIN HCL 0.4 MG CAPSULE PO SCH (21:22)
[2018-12-08 04:24] VITALS: BP 100/50
[2018-12-08 04:54] LABS: GLUCOMETER DEV NAME(LOC) 5S.2; GLUCOSE,POINT OF CARE 116 MG/DL (70-110)
[2018-12-08] MEDS: INSULIN LISPRO 100 UNITS/ML SQ PRN (06:09)
[2018-12-08] MEDS: LEVOTHYROXINE SODIUM 25 MCG TABLET PO SCH (06:14)
[2018-12-08] MEDS: PANTOPRAZOLE SODIUM 40 MG DR TABLET PO SCH (06:15)
[2018-12-08 08:20] VITALS: BP 117/46
[2018-12-08] MEDS: SEVELAMER CARBONATE 800 MG TABLET PO SCH ×3 (08:37→17:31)
[2018-12-08] MEDS: MIDODRINE HCL 5 MG TABLET PO PRN (08:37)
[2018-12-08] MEDS: COLCHICINE 0.6 MG TABLET PO SCH ×3 (09:00→20:58)
[2018-12-08] MEDS: DOCUSATE SODIUM 100 MG CAPSULE PO SCH ×2 (09:00→21:00)
[2018-12-08 10:09] LABS: GLUCOMETER DEV NAME(LOC) 5N.2; GLUCOSE,POINT OF CARE 143 MG/DL (70-110)
[2018-12-08] MEDS: GuaiFENesin/D-METHORPHAN [SUGAR-FREE] 200-20MG/10 ML SYRUP UDCUP PO PRN ×2 (11:10→20:58)
[2018-12-08] MEDS: ALLOPURINOL 100 MG TABLET PO SCH (11:10)
[2018-12-08] MEDS: AMIODARONE HCL 200 MG TABLET PO SCH ×2 (11:10→20:57)
[2018-12-08] MEDS: FOLIC ACID 1 MG TABLET PO SCH (11:10)
[2018-12-08] MEDS: BUDESONIDE/FORMOTEROL FUMARATE 160-4.5 MCG/PUFF 6.9 GM INHALER IH SCH ×2 (11:11→20:57)
[2018-12-08 12:06] VITALS: BP 113/55
[2018-12-08 12:44] LABS: GLUCOMETER DEV NAME(LOC) 5S.1; GLUCOSE,POINT OF CARE 145 MG/DL (70-110)
[2018-12-08] MEDS ORDERED: AMIO100T4 PO (15:12)
[2018-12-08] MEDS ORDERED: ATOR10TA69 PO (15:12)
[2018-12-08] MEDS ORDERED: INSU100V12 SQ (15:14)
[2018-12-08] MEDS ORDERED: BUDE0.5A NEB (15:14)
[2018-12-08] MEDS ORDERED: METO50 PO (15:16)
[2018-12-08] MEDS ORDERED: PANT40TA25 PO (15:17)
[2018-12-08] MEDS ORDERED: ACET-2902 PO (15:18)
[2018-12-08] MEDS ORDERED: ALBU2.5V2 NEB (15:19)
[2018-12-08] MEDS ORDERED: HYDR-4061 PO (15:21)
[2018-12-08] MEDS ORDERED: IPRNEB IH (15:22)
[2018-12-08] MEDS: BUDESONIDE 0.5 MG/2 ML NEB SOLUTION NEB SCH ×2 (15:22→20:49)
[2018-12-08] MEDS ORDERED: MIDO5TAB PO (15:24)
[2018-12-08] MEDS ORDERED: ONDA4TAB9 PO (15:24)
[2018-12-08] MEDS ORDERED: ZOLP5TAB2 PO (15:25)
[2018-12-08 16:56] VITALS: BP_SYST 117; BP_SYST 127; BP_DIAS 68; BP_DIAS 69
[2018-12-08] MEDS: METOPROLOL TARTRATE 50 MG TABLET PO SCH ×2 (17:31→21:00)
[2018-12-08 19:50] VITALS: BP 97/45
[2018-12-08] MEDS: SIMVASTATIN 40 MG TABLET PO SCH (20:57)
[2018-12-08] MEDS: TAMSULOSIN HCL 0.4 MG CAPSULE PO SCH (20:57)
[2018-12-08] MEDS: ATORVASTATIN CALCIUM 20 MG TABLET PO SCH (20:58)
[2018-12-08] MEDS: INSULIN DETEMIR 100 UNITS/ML SQ SCH (21:00)
[2018-12-08 23:15] VITALS: BP 99/51
[2018-12-09 04:50] VITALS: BP 114/71
[2018-12-09] MEDS: PANTOPRAZOLE SODIUM 40 MG DR TABLET PO SCH (05:40)
[2018-12-09] MEDS: LEVOTHYROXINE SODIUM 25 MCG TABLET PO SCH (05:41)
[2018-12-09] MEDS: GuaiFENesin/D-METHORPHAN [SUGAR-FREE] 200-20MG/10 ML SYRUP UDCUP PO PRN (05:41)
[2018-12-09 07:29] LABS: GLUCOMETER DEV NAME(LOC) 5S.1; GLUCOSE,POINT OF CARE 135 MG/DL (70-110)
[2018-12-09 08:18] VITALS: BP 96/55
[2018-12-09] MEDS: SEVELAMER CARBONATE 800 MG TABLET PO SCH ×2 (08:47→11:42)
[2018-12-09] MEDS: DOCUSATE SODIUM 100 MG CAPSULE PO SCH (08:48)
[2018-12-09] MEDS: ALLOPURINOL 100 MG TABLET PO SCH (08:48)
[2018-12-09] MEDS: FOLIC ACID 1 MG TABLET PO SCH (08:48)
[2018-12-09] MEDS: MIDODRINE HCL 5 MG TABLET PO PRN (08:48)
[2018-12-09] MEDS: BUDESONIDE/FORMOTEROL FUMARATE 160-4.5 MCG/PUFF 6.9 GM INHALER IH SCH (08:48)
[2018-12-09] MEDS: COLCHICINE 0.6 MG TABLET PO SCH (08:48)
[2018-12-09] MEDS: METOPROLOL TARTRATE 50 MG TABLET PO SCH (09:00)
[2018-12-09] MEDS: BUDESONIDE 0.5 MG/2 ML NEB SOLUTION NEB SCH (09:05)
[2018-12-09 11:35] VITALS: BP 105/45
[2018-12-09] MEDS: INSULIN LISPRO 100 UNITS/ML SQ PRN (11:46)
[2018-12-09 15:39] LABS: GLUCOMETER DEV NAME(LOC) 5S.2; GLUCOSE,POINT OF CARE 128 MG/DL (70-110)
[2018-12-09 15:39] LABS: GLUCOMETER DEV NAME(LOC) 5S.2; GLUCOSE,POINT OF CARE 150 MG/DL (70-110)
[2018-12-09 15:39] LABS: GLUCOMETER DEV NAME(LOC) 5S.2; GLUCOSE,POINT OF CARE 138 MG/DL (70-110)
[2018-12-10 11:40] LABS: GLUCOMETER DEV NAME(LOC) 5S.1; GLUCOSE,POINT OF CARE 109 MG/DL (70-110)
== END 2018-12-09 15:10 | DRG 291 ==
LOC: EMS 11:24 → 5S 14:49
PROVIDERS: ADMIT Internal Medicine; ATTEND Internal Medicine
PROC: 5A1D70Z Performance of Urinary Filtration, Intermittent, Less than 6 Hours Per Day (ICD-10-PCS; principal; 2018-11-28)
PROC: 5A1D70Z Performance of Urinary Filtration, Intermittent, Less than 6 Hours Per Day (ICD-10-PCS; 2018-11-29)
PROC: 5A1D70Z Performance of Urinary Filtration, Intermittent, Less than 6 Hours Per Day (ICD-10-PCS; 2018-11-30)
PROC: 5A1D70Z Performance of Urinary Filtration, Intermittent, Less than 6 Hours Per Day (ICD-10-PCS; 2018-12-01)
PROC: 5A1D70Z Performance of Urinary Filtration, Intermittent, Less than 6 Hours Per Day (ICD-10-PCS; 2018-12-02)
PROC: 5A1D70Z Performance of Urinary Filtration, Intermittent, Less than 6 Hours Per Day (ICD-10-PCS; 2018-12-03)
PROC: 5A1D70Z Performance of Urinary Filtration, Intermittent, Less than 6 Hours Per Day (ICD-10-PCS; 2018-12-04)
PROC: 5A1D70Z Performance of Urinary Filtration, Intermittent, Less than 6 Hours Per Day (ICD-10-PCS; 2018-12-05)
PROC: 5A1D70Z Performance of Urinary Filtration, Intermittent, Less than 6 Hours Per Day (ICD-10-PCS; 2018-12-06)
PROC: 5A1D70Z Performance of Urinary Filtration, Intermittent, Less than 6 Hours Per Day (ICD-10-PCS; 2018-12-07)
PROC: 5A1D70Z Performance of Urinary Filtration, Intermittent, Less than 6 Hours Per Day (ICD-10-PCS; 2018-12-08)
DX: I13.2 Hypertensive heart and chronic kidney disease with heart failure and with stage 5 chronic kidney disease, or end stage renal disease (principal); J18.9 Pneumonia, unspecified organism; I50.33 Acute on chronic diastolic (congestive) heart failure; N18.6 End stage renal disease; I31.3 Pericardial effusion (noninflammatory); N25.81 Secondary hyperparathyroidism of renal origin; J90 Pleural effusion, not elsewhere classified; J98.11 Atelectasis; J44.0 Chronic obstructive pulmonary disease with (acute) lower respiratory infection; E46 Unspecified protein-calorie malnutrition; E87.1 Hypo-osmolality and hyponatremia; N40.0 Benign prostatic hyperplasia without lower urinary tract symptoms; I95.9 Hypotension, unspecified; E88.09 Other disorders of plasma-protein metabolism, not elsewhere classified; E83.42 Hypomagnesemia; M10.9 Gout, unspecified; E03.9 Hypothyroidism, unspecified; D69.6 Thrombocytopenia, unspecified; D72.819 Decreased white blood cell count, unspecified; G89.4 Chronic pain syndrome; K76.0 Fatty (change of) liver, not elsewhere classified; D63.1 Anemia in chronic kidney disease; E11.22 Type 2 diabetes mellitus with diabetic chronic kidney disease; I48.0 Paroxysmal atrial fibrillation; Z99.2 Dependence on renal dialysis; E83.51 Hypocalcemia; E83.39 Other disorders of phosphorus metabolism; Z83.3 Family history of diabetes mellitus; Z82.49 Family history of ischemic heart disease and other diseases of the circulatory system; Z79.4 Long term (current) use of insulin; Z87.891 Personal history of nicotine dependence; Z68.24 Body mass index [BMI] 24.0-24.9, adult
CPT/HCPCS: 71250; 71275; 82805; 83036; 83605; 83735; 84145; 84443; 86704; 86706; 87040; 87070; 87081; 87340; 93005; 93308; 94640; 96365; 96375; 97116; 97163; 97167; 97530; 97535; G0378; J0692; J2150; J2930; J3475; J7030; J7050; J7060; P9047

== ENCOUNTER → 2018-12-21 | Outpatient (CLI) | payer MEDICARE, OTHER ==
[~2018-12-21] MED LIST changes: +ACET-2902 PO; +ALBU2.5V2 NEB; +AMIO100T4 PO; +ATOR10TA69 PO; +ATOR20TA86 PO; +BUDE0.5A NEB; +CEFX1I IV; -FURO40 PO; +HYDR-4061 PO; +INSU100V SQ; +IPRNEB IH; +METO50 PO; +MIDO5TAB PO; +ONDA4TAB9 PO; +PANT40TA25 PO; +ZOLP5TAB2 PO
[2018-12-21 13:12] VITALS: BP 104/44
== END | disposition home or self-care (01) ==
LOC: SRCNTR 10:13
PROVIDERS: ATTEND Internal Medicine Critical Care Medicine
DX: I13.2 Hypertensive heart and chronic kidney disease with heart failure and with stage 5 chronic kidney disease, or end stage renal disease (principal); E11.22 Type 2 diabetes mellitus with diabetic chronic kidney disease; N18.6 End stage renal disease; I50.9 Heart failure, unspecified; D64.9 Anemia, unspecified; M10.9 Gout, unspecified
CPT/HCPCS: G0463